=== PATIENT | male | born 1970 | race Caucasian/White ===

== ENCOUNTER 2019-10-16 09:18 | Day surgery (SDC) | payer OTHER, SELFPAY ==
[2019-10-14 14:43] VITALS: BMI 27.3
[2019-10-16] VITALS (10 sets, daily range): BP systolic 100–134; BP diastolic 61–83; PULSE 48–67; RESP 11–16; TEMP 36.1–37; O2SAT 93–99; BMI 27.0
--- NOTE | 2019-10-16 | PATH_ITS ---
[facility] Accession Number: [id number] . 01 Material submitted: . OMENTUM/HERNIA SAC - INCARCERATED OMENTUM AND HERNIA SAC . 02 Diagnosis: Incarcerated Omenum and Hernia Sac, Ventral Hernia Repair: Portions of fibroadipose tissue, some with a mesothelial lining (7.0 x 6.2 x 1.7 cm in aggregate), consistent with hernia sac and contents. Negative for atypia or malignancy. MRV 10/18/2019 1151 Local . 02 Electronically signed: . Jessie Fragoso MD, Pathologist NPI- [id number] . 01 Gross description: . Specimen A is received in formalin, labeled with patient identification and incarcerated omentum / hernia sac. It consists of four yellow-stanford and lobulated tissue fragments which are focally covered by a pink-stanford and dull membranous soft tissue and are 7.0 x 6.2 x 1.7 cm in aggregate. Sectioning reveals yellow-stanford and lobulated cut surfaces without any grossly identified necrosis or hemorrhage. No discrete masses or lesion are grossly identified. Ep Specialist sections are submitted in four cassettes. . Summary of sections: A1-A4 - two pieces each. ([id number]) /V 10/18/2019 115 Local . 02 Pathologist provided ICD-10: K43.9, K42.0 . 02 CPT . 847008 Performed at: 01 [facility] [address], [place], [place] [id number] MD Deep Sandoval MD Phone: [phone] Performed at: [address] [facility] [id number] [place], [place] [id number] MD Snow Sanchez MD Phone: [phone]
[2019-10-16] MEDS: LACTATED RINGERS 1,000 ML 100 ML IV (09:50)
--- NOTE | 2019-10-16 10:57 | PM.PREOP ---
Pre-operative Note COVID-19 COVID-19 status: Negative Result date/Date tested (Pos, Neg/Pending): 10/14/19 Interval Note History & Physical reviewed/Exam performed by Physician: Yes Changes to H&P: No
[2019-10-16] MEDS: CEFAZOLIN 2 GM/100 ML FROZ.PIGGY IV (11:10)
--- NOTE | 2019-10-16 11:31 | SUR.OPER ---
Supine on padded OR bed, head on pillow, arms secured on padded arm boards at <90 degrees abduction, legs uncrossed, safety belt at thigh, tape over blanket over lower legs.
[2019-10-16] MEDS: BUPIVACAINE LIPOSOME 266 MG/20 ML VIAL INJ (11:52)
[2019-10-16] MEDS: BUPIVACAINE 0.25% W/ EPI 30 ML VIAL INJ ×2 (11:52→12:07)
--- NOTE | 2019-10-16 12:52 | PM.OP.1 ---
Operative Date/Time/Diagnoses Date of procedure: 10/16/19 Time of procedure: 12:53 Pre-op diagnosis: Supra umbilical hernia Post-op diagnosis: other (three supra umbilical midline hernia defects) Procedure & Clinicians Procedure: Repair of 4cm incarcerated supra umbilical hernia with mesh Same procedure as scheduled: Yes Indications: This is a 49 yo man with supra umbilical hernia, which has become non-reducible and is causing him more pain. Surgeon: Arlene Boyle Click Yes if Unassisted: Yes Anesthesia Type: General Operative Notes Findings: Three hernia defects of 0.5, 0.8, and 2cm, with incarcerated omentum, total of 4cm when connected. Specimen(s): other (hernia sac, incarcerated omentum) Estimated Blood Loss (mL): 1 Procedure in detail: The patient was brought to the operating room, placed supine on the operating table, and sequential compression devices were placed on both legs and turned on. Appropriate perioperative antibiotics were given. General anesthesia was induced by the anesthesiologist and the patient was intubated. The abdomen was then prepped and draped in sterile fashion, and a surgical time-out was conducted. At this point local anesthetic was injected using 0.25% Marcaine with epi, at the site of the planned incision. A 6cm vertical midline incision was then made overlying the hernia bulge. Dissection was then carried down through the dermis and subcutaneous tissue, until a hernia sac was encountered. I dissected circumferentially around the hernia sac, and identified the hernia defect which was about 2cm in size. The hernia sac was 4cm and not reducible. I opened the sac and dissected down to the hernia defect. There was strangulated omentum within the hernia sac. I could not reduce it. I ligated the tongue of omentum. I placed two silk ties and divided the non reducible omentum. The tied stump had good hemostasis and was dropped into the abdomen. The remaining hernia sac was dissected free from the hernia defect and passed off the table. The hernia sac was closed with 3-0 Vicryl. I cleared the space between the peritoneum and the fascia with my index finger, and while doing so I identified two additional hernia defects in the fascial midline superior to the 2cm defect. The two additional defects were 5mm and 8mm each. I opened all three defects, creating a 4cm defect. I cleared the preperitoneal space with 4cm on each side of the defect. I placed a large BARD Ventralex mesh in the defect and secured it to the fascia with 3-0 PDS in six places circumferentially. I infiltrated the fascia with 0.25% Marcaine with epi for a total of 60mL, and 20mL of Exparel. I then closed the midline fascia with running 2-0 PDS and reinforced with 0 Ethibond. I then closed the subcutaneous fat with 3-0 Vicryl suture, tacked down the umbilicus with 3-0 Vicryl and closed the skin with subcuticular Monocryl 4-0. The skin edges were then sealed with Dermabond. This concluded the procedure. A stack of 4x4 gauze were placed over the incision and covered with a Tegaderm. The patient was awakened from anesthesia and extubated. He was transferred onto his hospital [facility]. The patient was then transferred to the postanesthesia care unit in stable condition. He tolerated the procedure well. Needle sponge and instrument counts were correct x2 at the end of the case. Complications: none Post-operative Condition: stable Disposition: PACU
[2019-10-16] MEDS: OXYCODONE/ACETAMINOPHEN 5/325 TABLET 1 TAB PO ×2 (13:10→13:38)
--- NOTE | 2019-10-16 13:26 | SUR.PHASEII ---
Addendum entered by Riddhi Maldonado R.N. 10/16/19 13:28: Discharge instructions reviewed with patient. Original Note: Patient tolerating po. Shantel CDI. Ice pack applied. Gave patient po pain medication for c/o 6/10 pain. Discharge instructions garth
== END 2019-10-16 13:47 | disposition home or self-care (01) ==
PROVIDERS: PCP Family Medicine; Referring Provider Surgery; Visit Provider Surgery
PROC: (CPT 49587; principal; 2019-10-16 11:00)
DX: K42.0 Umbilical hernia with obstruction, without gangrene (principal); I10 Essential (primary) hypertension
CPT/HCPCS: 49587; C1781; C9290; J0690; J1100; J2405; J2704; J3010

== ENCOUNTER → 2021-10-14 11:07 | Outpatient (CLI) | payer OTHER, SELFPAY ==
[2021-10-14 20:34] LABS: Add Manual Diff / Slide Review NO; Basophils Absolute Auto 0 /uL (0-100); Basophils Percent Auto 0.8 % (0-2); Eosinophils Absolute Auto 200 /uL (0-450); Eosinophils Percent Auto 2.6 % (2-4); Hemoglobin 15.1 g/dL (13.5-17.5); Lymphocytes Absolute Auto 2100 /uL (1100-4500); Lymphocytes Percent Auto 35.4 % (25-40); Mean Corpuscular HGB Conc 34.2 % (30-36); Mean Corpuscular Hemoglobin 32.4 PG (26-34); Mean Corpuscular Volume 94.8 fL (80-100); Monocytes Absolute Auto 400 /uL (0-900); Monocytes Percent Auto 6.7 % (3-14); Neutrophils Absolute Auto 3200 /uL (1500-7000); Neutrophils Percent Auto 54.5 % (50-75); Platelet Count 186 X10^3/uL (150-400); Red Blood Cell Count 4.65 X10^6/uL (4.5-5.9); Red Cell Distribution Width 13.2 % (11.6-14.8); White Blood Cell Count 5.8 X10^3/uL (4.5-11.0)
[2021-10-15 05:44] LABS: BUN Creatinine Ratio 20.4 (6-22); Blood Urea Nitrogen 19 mg/dL (9-20); Calcium 9.6 mg/dL (8.4-10.2); Carbon Dioxide 27 mmol/L (22-32); Chloride 102 mmol/L (98-107); Cholesterol 211 mg/dL (140-199); Estimated Glomerular Filt Rate > 60 mL/min (>60); Glucose 92 mg/dL (70-100); HDL Cholesterol 39 mg/dL (40-60); HEMOLYSIS < 15 (0-50); LDL Cholesterol Calculated 151 mg/dL (<100); Potassium 4.6 mmol/L (3.4-5.1); Sodium 138 mmol/L (137-145); Triglycerides 106 mg/dL (35-150)
[2021-10-15 06:14] LABS: Prostate Specific Antigen Scrn 0.467 ng/mL (0.1-4.0)
== END ==
PROVIDERS: PCP Family Medicine; Visit Provider Family Medicine
DX: Z00.00 Encounter for general adult medical examination without abnormal findings (principal); Z11.59 Encounter for screening for other viral diseases; Z12.11 Encounter for screening for malignant neoplasm of colon; Z12.5 Encounter for screening for malignant neoplasm of prostate; Z13.0 Encounter for screening for diseases of the blood and blood-forming organs and certain disorders involving the immune mechanism; Z13.1 Encounter for screening for diabetes mellitus; Z13.220 Encounter for screening for lipoid disorders; Z71.85 Encounter for immunization safety counseling; Z80.0 Family history of malignant neoplasm of digestive organs
CPT/HCPCS: 80048; 80061; 85025; G0103

== ENCOUNTER → 2022-02-16 14:04 | Outpatient (CLI) | payer OTHER, SELFPAY ==
[2022-02-16 14:42] LABS: COVID19 -Nasal RAPID Negative (Negative)
== END ==
PROVIDERS: PCP Family Medicine; Visit Provider Surgery
DX: Z01.812 Encounter for preprocedural laboratory examination (principal); Z20.822 Contact with and (suspected) exposure to COVID-19
CPT/HCPCS: 87635; C9803

== ENCOUNTER 2022-02-17 07:46 | Day surgery (SDC) | payer OTHER, SELFPAY ==
--- NOTE | 2022-02-17 | PATH_ITS ---
[facility] Accession Number: [id number] No. of containers..02 Tissue . 01 Material submitted: . PART A: colon - SIGMOID COLON POLYP PART B: colon - DESCENDING COLON POLYP . 01 Diagnosis: A. Sigmoid Colon Polyp, Biopsy: Hyperplastic polyp. . B. Descending Colon Polyp, Biopsy: Hyperplastic polyp. MRV 02/18/2022 1832 Local . 01 Electronically signed: . Alexander Bernal MD, PhD, Pathologist NPI- [id number] . 01 Gross description: . Part A: SIGMOID COLON POLYP: Received in formalin is 1 fragment(s) of stanford, soft tissue measuring 0.3 x 0.3 x 0.3 cm submitted entirely in 1 cassette(s) Part B: DESCENDING COLON POLYP: Received in formalin is 1 fragment(s) of stanford, soft tissue measuring 0.2 x 0.2 x 0.2 cm submitted entirely in 1 cassette(s) /LEYDA 02/18/2022 0106 Local . 01 Pathologist provided ICD-10: K63.5 . 01 CPT . 637439, 570665 Specimen Comment: A courtesy copy of this report has been sent to [phone] Performed at: 01 [facility] [address] [place] [address] [address], [place], [place] [id number] MD Deep Sandoval MD Phone: [phone]
[2022-02-17 08:14] VITALS: BP 116/74; PULSE 55; RESP 16; TEMP 36.7; O2SAT 99; BMI 25.1
[2022-02-17] MEDS: LACTATED RINGERS 1,000 ML 200 ML IV (08:24)
--- NOTE | 2022-02-17 09:00 | PM.HP.1 ---
History of Present Illness History of Present Illness Date Patient Seen: 02/17/22 Time Patient Seen: 09:00 Chief complaint: SDC Narrative: The patient presents for colorectal screening. They have never had any previous examination for such. No personal or family history of colon cancer. On further history denies any recent gastrointestinal symptoms. No nausea, vomiting, abdominal pain, loss of appetite, unexplained weight loss, change in bowel habits, diarrhea, constipation, melena, hematochezia, or bright red blood per rectum. Patient History Medical History (Updated 09/30/21 @ 16:42 by Fabrizio Emerson MD) Encounter for general adult medical examination with abnormal findings Family history of colon cancer requiring screening colonoscopy HTN (hypertension) Screening for diabetes mellitus Screening for HIV (human immunodeficiency virus) Screening for lipid disorders Umbilical hernia Surgical History (Updated 10/31/19 @ 13:51 by Arlene Boyle MD) No history of previous surgery Family & Social History Family History Grandfather Hypertension Prostate cancer Social History: household members spouse Tobacco & Substance use: Tobacco type cigarettes Smoking Status Current some day smoker Smoking packs per day 0.5 alcohol intake current alcohol intake frequency holiday/special occasion Substance Use Type marijuana Meds Home Medications and Allergies Home Medications Medication Instructions Recorded Confirmed Type sodium,potassium,mag sulfates 17.5 See Rx Instructions PO .COMPLEX 02/15/22 02/17/22 Rx gram-3.13 gram-1.6 gram oral soln #354 mL (Suprep Bowel Prep Kit) Allergies Allergy/AdvReac Type Severity Reaction Status Date / Time aspirin Allergy Hives, Verified 02/17/22 08:25 bleeding as an Exam Vital Signs (past 8 hours): - 02/17/22 08:14 Temperature 98.1 F Pulse Rate 55 L Respiratory Rate 16 Blood Pressure 116/74 Pulse Oximetry 99 Oxygen Delivery Method Room Air Oxygen Delivery Method Room Air Narrative Exam Narrative: General adult male alert oriented no acute distress Abdomen soft nontender nondistended Assessment & Plan Assessment & Plan narrative: The patient requires colorectal screening and colonoscopy is recommended. Technical details were discussed. Risks, benefits, alternatives explained. Risks including but not limited to myocardial infarction, aspiration, bleeding, pain, missed lesion, incomplete examination, need for further radiographic studies, colonic perforation, and need for major abdominal surgery were discussed. All questions were answered to their satisfaction, and they are in agreement with this plan. Time Spent With Patient Critical Care time: I spent a total of [] minutes of critical care time on this patient's care today; this time is exclusive of procedural time.
--- NOTE | 2022-02-17 09:01 | PM.OP.COLON ---
Operative Date/Time/Diagnoses Date of procedure: 02/17/22 Time of procedure: 09:01 Pre-op diagnosis: Screening colonoscopy Post-op diagnosis: same Procedure & Clinicians Study performed: Colonoscopy Same procedure as scheduled: Yes Indications: Screening Surgeon: Micha Hernandez Procedure Notes Procedure in detail: The history and physical was performed/updated and the patient is ASA class is 1. The procedure was discussed in detail with the patient. Potential risks complications including infection, bleeding, missed diagnosis, perforation, need for surgery, and were explained. Their questions were answered and informed consent was obtained. Patient was brought to the procedure room and placed standard monitoring equipment. The patient's vital signs were monitored continuously throughout the entire procedure. Prior to starting time-out was performed. The patient was placed in the left lateral recumbent position. Procedural sedation was administered by anesthesia. Examination began with a thorough inspection of the perianal area there was no evidence of fissures, fistulae, external hemorrhoids or cutaneous malignancy. The colonoscopy scope was then placed into the anal canal and was advanced to the cecum, which was identified by the ileocecal valve, the appendiceal orifice and the confluence of the taenia. The scope was then slowly withdrawn examining colon thoroughly in all directions, irrigating it of any residual stool. FINDINGS 1. Sigmoid colon 5 mm polyp removed with biopsy forceps 2. Descending colon 5 mm polyp removed with biopsy forceps The patient tolerated the procedure well. They will be discharged once criteria are met. The prep was of good/excellent quality. The withdrawl time was 6 minutes. Specimen(s): other (Descending and sigmoid colon polyps) Complications: none Impression: Polyps Post-procedure Plan for aftercare: Follow-up dependent on pathology findings Disposition: same day surgery
[2022-02-17 10:14] VITALS: BP 98/67; PULSE 78; RESP 14; TEMP 36.9; O2SAT 96
[2022-02-17 10:16] VITALS: BP 98/67; PULSE 75; RESP 16; O2SAT 97
[2022-02-17 10:20] VITALS: BP 107/76; PULSE 74; RESP 18
[2022-02-17 10:21] VITALS: BP 105/78; BP 110/72; PULSE 74; PULSE 76; RESP 18; O2SAT 97; O2SAT 98
== END 2022-02-17 10:49 | disposition home or self-care (01) ==
PROVIDERS: PCP Family Medicine; Referring Provider Surgery; Visit Provider Surgery
PROC: 0DJD8ZZ Inspection of Lower Intestinal Tract, Via Natural or Artificial Opening Endoscopic (ICD-10-PCS; CPT 45378; principal; 2022-02-17 09:30)
DX: Z12.11 Encounter for screening for malignant neoplasm of colon (principal); K63.5 Polyp of colon
CPT/HCPCS: 45380; J2704; J3010